=== PATIENT | male | born 1990 | race Caucasian/White ===

== ENCOUNTER 2023-11-29 10:26 | Emergency (ER) | payer OTHER, SELFPAY ==
[2023-11-29 10:29] VITALS: BP 112/60; PULSE 84; RESP 15; TEMP 36.7; O2SAT 97
[2023-11-29 10:34] VITALS: O2SAT 97
[2023-11-29 10:35] VITALS: BP 112/60; PULSE 59; PULSE 84; RESP 15; TEMP 36.7; O2SAT 97
[2023-11-29 10:40] VITALS: O2SAT 97
--- NOTE | 2023-11-29 10:47 | ED.GENADUL_ITS ---
Discharge Plan Disposition Patient Disposition: [facility] Condition: Stable Discharge Details Clinical Impression: Hernia, inguinal, right Primary Care Provider: Evelyn Suarez ED Provider: Abbie Castorena Discharge Instructions Instructions: Groin Hernia (DC) Additional Instructions: At this time you have opted not to be evaluated further for the right groin pain. Please return to the ER or be seen sooner for any worsening pain, nausea vomiting diarrhea, problems urinating, continued constipation, fever chills or worsening concerns. Please take Tylenol or Ibuprofen with food every 4-6 hours as needed for pain and swelling. Referrals: Evelyn Suarez [Primary Care Provider] - 3 days HPI General Mode of arrival: ambulatory . Date/Time Provider Initiated Documentation: 11/29/23 10:33 . Limitations to Documentation: no limitations . Information obtained by: police . HPI Narrative: 33-year-old male presents in custody with chief complaint of right lower groin pain. Which has gotten worse since approximately last night. He reports however that he has had this similar pain for the last 15 years and it is tolerable. There is a confusion prior to arrival at the group home per correctional officers report and patient reports that he does not want to be seen in the emergency department at this time. Last bowel movement was proximately 4 to 5 days ago which patient is not concerned about. He denies any problems urinating problems urination. He is requesting to be discharged without any further evaluation or treatment. He is alert and oriented x 4 does not appear to be under the influence of any substances. He denies any recent heavy lifting or injuries. General Stated Complaint: Abd Prob INDIGO: 3 Review of Systems All systems reviewed & are unremarkable except as noted in HPI and below Constitutional Constitutional: Denies chills and Denies fever(s) Gastrointestinal Gastrointestinal: Denies abdominal pain, Denies hematochezia, Denies change in bowel habits, Reports constipation (last BM 4 days ago), Denies diarrhea, Denies nausea and Denies vomiting Genitourinary Genitourinary: Reports as per HPI, Denies hematuria, Denies dysuria, Denies nocturia, Denies penile discharge, Denies scrotal swelling, Denies testicular mass, Denies testicular pain, Denies urinary hesitancy and Denies urinary urgency Exam Narrative Exam Narrative: Constitutional: Alert and oriented x3. Appears stated age. Normal body habitus. Speaking in full sentences Head: Normocephalic, no trauma. Abdomen: Nondistended, declined further evaluation. Course Vital Signs Vital signs: Vital Signs Temperature 36.7 C 11/29/23 10:29 Pulse 84 11/29/23 10:29 Respiratory Rate 15 11/29/23 10:29 Blood Pressure 112/60 11/29/23 10:29 Pulse Oximetry 97 11/29/23 10:29 Temperature 36.7 C 11/29/23 10:35 Temperature Source Tympanic 11/29/23 10:35 Pulse 84 11/29/23 10:35 Respiratory Rate 15 11/29/23 10:35 Respiratory Effort Normal 11/29/23 10:35 Blood Pressure 112/60 11/29/23 10:35 Blood Pressure Position Sitting 11/29/23 10:35 Pulse Oximetry 97 11/29/23 10:35 Oxygen Delivery Method Room Air 11/29/23 10:35 Oxygen Flow Rate 0 11/29/23 10:29 Medical Decision Making 33-year-old male presents in custody with chief complaint of right lower groin pain. Which has gotten worse since last night. He reports however that he has had this similar pain for the last 15 years and it is tolerable. There is a confusion prior to arrival at the group home and patient reports that he does not want to be seen in the emergency department at this time. Last bowel movement was proximately 4 to 5 days ago which patient is not concerned about. He denies any problems urinating problems urination. He is requesting to be discharged without any further evaluation or treatment. He is alert and oriented x 4 does not appear to be under the influence of any substances. Patient to be returned to correctional facility in the accompaniment of correction officers with strict return instructions. Quality:SDOH Health Related Social Needs: No Data to Display PFSH All Active Problems (Updated 11/29/23 @ 10:51 by Abbie Castorena NP) Hernia, inguinal, right (Acute) Social History Smoking risk assessment performed?: No
[2023-11-29 11:06] VITALS: BP 112/60; PULSE 59; RESP 15; TEMP 36.7; O2SAT 97
== END 2023-11-29 11:06 ==
PROVIDERS: Emergency Provider Registered Nurse Emergency; PCP Nurse Practitioner Family
DX: R10.31 Right lower quadrant pain (principal); K40.90 Unilateral inguinal hernia, without obstruction or gangrene, not specified as recurrent
CPT/HCPCS: 99281; 99282

== ENCOUNTER 2024-08-23 15:05 | Emergency (ER) | payer OTHER, SELFPAY ==
[2024-08-23 15:08] VITALS: BP 137/81; PULSE 79; RESP 16; TEMP 37.4; O2SAT 97
[2024-08-23 15:14] VITALS: BP 137/81; PULSE 79; RESP 16; TEMP 37.4; O2SAT 97
--- NOTE | 2024-08-23 15:16 | W.ED.GENAD ---
Discharge Plan Disposition Patient Disposition: Home Condition: Stable Discharge Details Clinical Impression: Facial cellulitis Primary Care Provider: Evelyn Suarez ED Provider: Masoud Wilde Home Meds and New Rx's Prescriptions: New ketorolac 10 mg tablet 10 mg PO QID 5 Days Qty: 19 0RF Rx Instructions: maximum total duration of 5 days from all oral, intranasal, or parenteral formulations clindamycin HCl 150 mg capsule 450 mg PO TID 14 Days Qty: 126 0RF Continued docusate sodium 100 mg capsule 100 mg PO BID sennosides [Laxative (sennosides)] 8.6 mg tablet 8.6 mg PO DAILY hydroxyzine HCl 50 mg tablet 50 mg PO DAILY acyclovir 400 mg tablet 400 mg PO DAILY prazosin 1 mg capsule 1 mg PO DAILY buprenorphine-naloxone [Suboxone] 8-2 mg film 3 film sublingual DAILY Patient Comments: PLACE THREE FILMS UNDER THE TONGUE EVERY DAY FOR 7 DAYS venlafaxine 37.5 mg tablet 37.5 mg PO DAILY Held ibuprofen [Advil] 200 mg tablet 800 mg PO ONCE Hold Instructions: Resume on 08/28/24. HOLD WHILE ON KETOROLAC Discharge Instructions Instructions: Stye, Clindamycin (Systemic), Ketorolac (Systemic), Cellulitis (Skin Infection), Adult ED Additional Instructions: You were seen in the emergency department for the cellulitis of your right upper lip and the early stye on your left upper eyelid, the stye just needs hot compresses and will likely drain a small amount of pus at some point and improved. The cellulitis to your upper lip is pretty significant, I have prescribed you clindamycin which covers most bacterial causes of cellulitis including MRSA due to penicillin and Bactrim allergies. Please take 1000 mg of Tylenol every 6 hours, correction in between Tylenol dosing please take the 10 mg oral ketorolac tablets for 5 days, once you run out of ketorolac tablets substitute 400 mg of ibuprofen for this dose. Take 450 mg of clindamycin 3 times per day, apply warm compresses to each area of infection with warm soapy or clean water each day. Please return to the emergency department for any severe vocal changes, increasing swelling despite treatment, difficulty managing secretions, neck stiffness and fever. The antibiotic should begin to turn the infection around by day 3. Referrals: Evelyn Suarez [Primary Care Provider] - Discharge Data Discharge Date/Time-TO BE ENTERED AT DEPARTURE: 08/23/24 15:46 HPI General Date/Time Provider Initiated Documentation: 08/23/24 15:13. HPI Narrative: 33 year-old male presents to ED today by PD/DOC with a chief complaint of R upper lip swelling with onset 2 weeks ago after a minor cut from shaving, now with worsening redness for the past 4 days. Quality described as painful to touch, swollen, and red, no radiation to honey colored crust, open sore, vocal changes, trismus, tongue swelling, dysphagia, neck soreness/stiffness, excessive drooling, endorses his tooth hurts behind in the setting of chronic diffuse dental decay, as well as a L upper eyelid minor redness. Severity is described as moderate to severe when touched. Palliating factors include was started on acyclovir 08/21. Provoking factors include nothing specific. Patient not anticoagulated. Related Data Home Medications ?Medication ?Instructions ?Recorded ?Confirmed acyclovir 400 mg tablet 400 mg PO DAILY 08/23/24 08/23/24 buprenorphine 8 mg-naloxone 2 mg 3 film sublingual DAILY 08/23/24 08/23/24 sublingual film (Suboxone) clindamycin HCl 150 mg capsule 450 mg (3 x 150 mg) PO TID 08/23/24 cellulitis 14 days #126 caps docusate sodium 100 mg capsule 100 mg PO BID 08/23/24 08/23/24 hydroxyzine HCl 50 mg tablet 50 mg PO DAILY 08/23/24 08/23/24 ibuprofen 200 mg tablet (Advil) 800 mg PO ONCE 08/23/24 08/23/24 ketorolac 10 mg tablet 10 mg PO QID 5 days #19 tabs 08/23/24 prazosin 1 mg capsule 1 mg PO DAILY 08/23/24 08/23/24 sennosides 8.6 mg tablet (Laxative 8.6 mg PO DAILY 08/23/24 08/23/24 (sennosides)) venlafaxine 37.5 mg tablet 37.5 mg PO DAILY 08/23/24 08/23/24 Previous Rx's ?Medication ?Instructions ?Recorded clindamycin HCl 150 mg capsule 450 mg (3 x 150 mg) PO TID 08/23/24 cellulitis 14 days #126 caps ketorolac 10 mg tablet 10 mg PO QID 5 days #19 tabs 08/23/24 Allergies Allergy/AdvReac Type Severity Reaction Status Date / Time Penicillins Allergy Severe Anaphylaxis Verified 08/23/24 15:13 codeine Allergy Intermediate Hives Verified 08/23/24 15:13 Sulfa (Sulfonamide AdvReac Intermediate Swelling/Ed Verified 08/23/24 15:13 Antibiotics) garima General Stated Complaint: Cellulitis INDIGO: 3 Review of Systems All systems reviewed & are unremarkable except as noted in HPI and below Exam Narrative Exam Narrative: GENERAL APPEARANCE: Well-nourished, non-toxic, awake and alert, atraumatic, no acute distress. SKIN: Warm, pink, dry, intact, without rashes/lesions/ulcerations. HEAD: Normocephalic, atraumatic, normal hair distribution for gender/age. EYES: Normal conjunctiva, no exudates on lids/lashes. ENT: Nares patent, no circumoral cyanosis, no facial swelling, diffuse dental decay without palpable gingival abscess, significant right upper lip swelling and erythema without tongue swelling, uvula midline, no trismus, managing secretions well, no cervical lymphadenopathy, minor redness to left upper eyelid consistent with early stye NECK: Supple, trachea midline, painless cervical ROM. LUNGS/CHEST: Non-labored respirations, normal A/P diameter, symmetrical expansion, no chest wall deformity HEART (CV/PV): No peripheral edema, no JVD. ABDOMEN: Soft, non-distended, no guarding. MSK: Normal ROM, no swelling/deformity to bilateral UEs or LEs, moving all extremities without weakness, no cyanosis, spine midline without tenderness, normal curvature. NEURO: Mental Status AAOx4 - alert to person, place, time, events No facial droop, no forehead involvement. Motor: No focal weakness - strength 5/5 in bilateral UEs and LEs, proximal and distal, symmetric. Sensory: sensation intact to light touch globally. Gait normal: patient ambulated without ataxia into ED room. PSYCH: euthymic, cooperative, pleasant, appropriate speech Course Vital Signs Vital signs: Vital Signs Temperature 37.4 C 08/23/24 15:08 Pulse 79 08/23/24 15:08 Respiratory Rate 16 08/23/24 15:08 Blood Pressure 137/81 08/23/24 15:08 Pulse Oximetry 97 08/23/24 15:08 Temperature 37.4 C 08/23/24 15:08 Temperature Source Tympanic 08/23/24 15:08 Pulse 79 08/23/24 15:08 Respiratory Rate 16 08/23/24 15:08 Blood Pressure 137/81 08/23/24 15:08 Pulse Oximetry 97 08/23/24 15:08 Oxygen Delivery Method Room Air 08/23/24 15:08 Oxygen Flow Rate 0 08/23/24 15:08 Medical Decision Making This dictation utilizes [id number] dictation software and may contain unedited grammatical errors. 33 year-old male presents to ED today by PD/DOC with a chief complaint of R upper lip swelling with onset 2 weeks ago after a minor cut from shaving, now with worsening redness for the past 4 days. Quality described as painful to touch, swollen, and red, no radiation to honey colored crust, open sore, vocal changes, trismus, tongue swelling, dysphagia, neck soreness/stiffness, excessive drooling, endorses his tooth hurts behind in the setting of chronic diffuse dental decay, as well as a L upper eyelid minor redness. Severity is described as moderate to severe when touched. Palliating factors include was started on acyclovir 08/21. Provoking factors include nothing specific. Patients' medical history: Oral HSV. Family and social history: Incarcerated. Pertinent exam findings / vital signs include diffuse dental decay without palpable gingival abscess, significant right upper lip swelling and erythema without tongue swelling, uvula midline, no trismus, managing secretions well, no cervical lymphadenopathy, minor redness to left upper eyelid consistent with early stye. Differential / pathologies of concern include cellulitis, dental abcess, impetigo, stye. Diagnostic studies of: -none. Interventions of: -1g PO Tylenol, 30mg IM Toradol, 450mg PO clindamycin with continuation by Rx PO, and 5 days of ketorolac ED Course/Assessment/Plan: 33-year-old incarcerated male presents with right upper lip swelling as well as a left upper eyelid stye, this has been present for the past 4 days after he nicked himself shaving 2 weeks ago, he is nontoxic and afebrile, has no palpable gingival abscess, no signs of deep space infection, plan to treat with clindamycin due to his penicillin and Bactrim allergy, counseled on therapeutic dosing of Tylenol and 5 days of Toradol and performing warm compresses, paper scripts provided to corrections staff. Findings not consistent with deep space infection, drainable abscess, airway compromise, HSV-but will have him continue acyclovir. Disposition of facial cellulitis. Patient verbalized understanding of the plan and return to ED criteria and engaged in shared decision making. Medical Records Medical records reviewed: Yes I reviewed the patient's medical records. Quality:SDOH Health Related Social Needs: No Data to Display PFSH All Active Problems (Updated 08/23/24 @ 15:29 by CLARI Wall) Facial cellulitis (Acute) Social History Smoking/Tobacco Use Status: Former Tobacco Use Smoking risk assessment performed?: Yes Alcohol Intake: former Substance use type: does not use Housing: other
[2024-08-23] MEDS: Acetaminophen 500 MG TAB 1000 MG PO (15:38)
[2024-08-23] MEDS: Clindamycin 150 MG CAP 450 MG PO (15:38)
[2024-08-23] MEDS: Ketorolac 30 MG/ML VIAL IM (15:38)
== END 2024-08-23 15:46 | disposition home or self-care (01) ==
LOC: ER 15:35
PROVIDERS: Emergency Provider Physician Assistant; PCP Nurse Practitioner Family
DX: K13.0 Diseases of lips (principal); H00.014 Hordeolum externum left upper eyelid; Z87.891 Personal history of nicotine dependence
CPT/HCPCS: 99283; J1885

== ENCOUNTER 2024-08-26 10:13 | Inpatient (IN) | payer MEDICAID, SELFPAY ==
[2024-08-26 10:20] VITALS: BP 116/74; PULSE 104; RESP 14; TEMP 36.7; O2SAT 97
--- NOTE | 2024-08-26 10:29 | W.ED.GENAD ---
Discharge Plan Disposition Patient Disposition: Admit to [facility] Condition: Stable Discharge Details Clinical Impression: Facial cellulitis Admit Date/Time: 08/26/24 14:38 Admit Provider: Tung Muro Attending Provider: Tung Muro Primary Care Provider: Evelyn Suarez ED Provider: Masoud Wilde Discharge Data Discharge Date/Time-TO BE ENTERED AT DEPARTURE: 08/26/24 15:33 HPI General Date/Time Provider Initiated Documentation: 08/26/24 10:26. HPI Narrative: 33 year-old male presents to ED today by DOC custody with a chief complaint of worsening facial cellulitis, failed multiple outpatient antibiotics at [facility], placed on clindamycin by myself this past Monday at an ER visit- with worsening of rizo erythema, redness, pain, and drainage from R upper lip cellulitis. Quality described as throbbing, painful, with painful poor dentition chronically as well, no radiation to dysphagia, vocal changes, neck stiffness, shortness of breath, high fever, nausea, excessive drooling. Severity is described as severe. Palliating factors include multiple outpatient PO antibiotics without improvement. Provoking factors include nothing specific. Events leading up to the incident/Associated Symptoms: States this all began from a minor pimple or cut from shaving a couple weeks ago now. The DOC staff did trial acyclovir as well. Patient not anticoagulated. Related Data Home Medications ?Medication ?Instructions ?Recorded ?Confirmed acyclovir 400 mg tablet 400 mg PO TID 08/23/24 08/26/24 buprenorphine 8 mg-naloxone 2 mg 3 film sublingual DAILY 08/23/24 08/26/24 sublingual film (Suboxone) clindamycin HCl 150 mg capsule 450 mg (3 x 150 mg) PO TID 08/23/24 08/26/24 cellulitis 14 days #126 caps docusate sodium 100 mg capsule 100 mg PO BID 08/23/24 08/26/24 hydroxyzine HCl 50 mg tablet 50 mg PO DAILY 08/23/24 08/26/24 ibuprofen 200 mg tablet (Advil) 800 mg PO TID 08/23/24 08/26/24 prazosin 1 mg capsule 1 mg PO HS 08/23/24 08/26/24 sennosides 8.6 mg tablet (Laxative 8.6 mg PO DAILY 08/23/24 08/26/24 (sennosides)) venlafaxine 37.5 mg tablet 37.5 mg PO DAILY 08/23/24 08/26/24 acetaminophen 500 mg capsule 1,000 mg PO TID 08/26/24 08/26/24 erythromycin 5 mg/gram (0.5 %) eye 1 applic ophthalmic (eye) TID 08/26/24 08/26/24 ointment Previous Rx's ?Medication ?Instructions ?Recorded clindamycin HCl 150 mg capsule 450 mg (3 x 150 mg) PO TID 08/23/24 cellulitis 14 days #126 caps Allergies Allergy/AdvReac Type Severity Reaction Status Date / Time Penicillins Allergy Severe Anaphylaxis Verified 08/26/24 10:23 codeine Allergy Intermediate Hives Verified 08/26/24 10:23 Sulfa (Sulfonamide AdvReac Intermediate Swelling/Ed Verified 08/26/24 10:23 Antibiotics) garima General Stated Complaint: Recheck INDIGO: 4 Review of Systems All systems reviewed & are unremarkable except as noted in HPI and below Exam Narrative Exam Narrative: GENERAL APPEARANCE: Well-nourished, non-toxic, awake and alert, atraumatic, no acute distress. SKIN: Warm, pink, dry, intact, without rashes/lesions/ulcerations. HEAD: Normocephalic, atraumatic, normal hair distribution for gender/age. EYES: Normal conjunctiva, no exudates on lids/lashes, no pain with EOM movement, mild erythematous papular swelling to the left upper eyelid consistent with stye ENT: Nares patent, no circumoral cyanosis, severe erythema and swelling to the right upper lip with purulent drainage, mild maxillary tenderness NECK: Supple, trachea midline, painless cervical ROM. LUNGS/CHEST: Lungs CTA bilaterally-no rhonchi/rales/wheezes diffusely, non-labored respirations, normal A/P diameter, symmetrical expansion, no chest wall deformity HEART (CV/PV): Regular rate and rhythm without murmur, no peripheral edema, no JVD. ABDOMEN: Soft, non-distended, no guarding. MSK: Normal ROM, no swelling/deformity to bilateral UEs or LEs, moving all extremities without weakness, no cyanosis, spine midline without tenderness, normal curvature. NEURO: Mental Status AAOx4 - alert to person, place, time, events No facial droop, no forehead involvement. Motor: No focal weakness - strength 5/5 in bilateral UEs and LEs, proximal and distal, symmetric. Sensory: sensation intact to light touch globally. Gait normal: patient ambulated without ataxia into ED room. PSYCH: euthymic, cooperative, pleasant, appropriate speech Course Vital Signs Vital signs: Vital Signs Temperature 36.7 C 08/26/24 10:20 Pulse 104 H 08/26/24 10:20 Respiratory Rate 14 08/26/24 10:20 Blood Pressure 116/74 08/26/24 10:20 Pulse Oximetry 97 08/26/24 10:20 Temperature 36.7 C 08/26/24 10:20 Temperature Source Oral 08/26/24 10:20 Pulse 104 H 08/26/24 10:20 Respiratory Rate 14 08/26/24 10:20 Blood Pressure 116/74 08/26/24 10:20 Blood Pressure Position Sitting 08/26/24 10:20 Pulse Oximetry 97 08/26/24 10:20 Oxygen Delivery Method Room Air 08/26/24 10:20 Oxygen Flow Rate 0 08/26/24 10:20 Medical Decision Making This dictation utilizes [id number] dictation software and may contain unedited grammatical errors. 33 year-old male presents to ED today by DOC custody with a chief complaint of worsening facial cellulitis, failed multiple outpatient antibiotics at [facility], placed on clindamycin by myself this past Monday at an ER visit- with worsening of rizo erythema, redness, pain, and drainage from R upper lip cellulitis. Quality described as throbbing, painful, with painful poor dentition chronically as well, no radiation to dysphagia, vocal changes, neck stiffness, shortness of breath, high fever, nausea, excessive drooling. Severity is described as severe. Palliating factors include multiple outpatient PO antibiotics without improvement. Provoking factors include nothing specific. Events leading up to the incident/Associated Symptoms: States this all began from a minor pimple or cut from shaving a couple weeks ago now. The DOC staff did trial acyclovir as well. Patients' medical history: Noncontributory. Family and social history: Incarcerated. Pertinent exam findings / vital signs include large right upper lobe facial cellulitis with some scant purulent drainage, also has a stye to the left eye that looks worse than this past Kris otherwise nontoxic and afebrile, benign cardiopulmonary. Differential / pathologies of concern include cellulitis, abscess, stye. Diagnostic studies of: - CBC, CMP, lactate, wound culture, blood cultures, CT facial with contrast. - CBC shows no leukocytosis, no left shift - Lactate negative - CMP without actionable abnormality - Wound culture pending, blood cultures pending - CT facial shows no significant large abscess, diffuse poor dentition and cellulitic changes to the right upper lip Interventions of: -IV vancomycin, consult hospitalist for admission- accepted @ 1335. ED Course/Assessment/Plan: 33-year-old incarcerated male presents with worsening right upper lip cellulitis he was seen this past Monday and placed on clindamycin after failing multiple outpatient antibiotics, he is not improving and is showing some worsening swelling and pain in now having purulent drainage from the area, plan to admit the patient for failing outpatient therapy for a severe facial cellulitis, he has a mild stye on the left eye likely just needs hot compresses has no evidence of any periorbital cellulitis on exam or imaging. Dr. Muro addmited @ 1335. Disposition of Facial Cellulitis. Patient verbalized understanding of the plan and return to ED criteria and engaged in shared decision making. Medical Records Medical records reviewed: Yes I reviewed the patient's medical records. Imaging Data Radiologic Study: Attestation: I personally reviewed and interpreted this imaging study as follows: Imaging: CT Scan Radiologist's impression: EXAM: CT FACIAL W CLINICAL HISTORY: upper R lip infection, failing outpatient. TECHNIQUE: Imaging Protocol: Axial computed tomography images with coronal and sagittal reformatted images were created and reviewed. IV contrast: 100 mL Optiray 350 COMPARISON: No exams were available for comparison FINDINGS: MAXILLOFACIAL CT SCAN: OSSEOUS: There is no evidence of facial fractures nor fluid the visualized paranasal sinuses. There is no evidence of orbital blowout fracture. VIV DENTAL: Mandible is intact but there are prominent periapical lucencies around numerous upper teeth in both sides of the maxilla. There is some overlying cortical dehiscence. There is prominent soft tissue swelling anteriorly the lips, more prominent right of center. This is most probably infectious. There is no gas in the soft tissues. No radiopaque foreign body. LYMPH NODES: There are enhancing slightly enlarged reactive lymph nodes in both submandibular regions. OROPHARYNX: No significant focal findings. Uvula is midline. No tonsillar abscess is evident. NASOPHARYNX: Unremarkable HYPOPHARYNX: Unremarkable. VOCAL CORDS: Unremarkable SALIVARY GLANDS: Parotid and submandibular glands appear unremarkable. IMPRESSION: Prominent swelling of the lips, right more than left, and predominately the lower lip.. Most probably infectious. Cannot exclude abscess of the right lower lip. No gas in the soft tissues. No radiopaque foreign body. Poor dentition. There are multiple prominent periapical lucencies around numerous upper teeth on both sides of the maxilla. Called by myself to ER provider 08/26/2024 at 1:00 2 p.m. Lab Data Lab results reviewed: Yes I reviewed the patient's lab results. Labs: 08/26/24 10:48 Lip - Right Upper Wound Culture - Pending 08/26/24 10:48 Lip - Right Upper Gram Stain - Final 08/26/24 11:25 Blood Blood Culture - Pending 08/26/24 11:04 Blood Blood Culture - Pending Laboratory Tests Range/Units 08/26/24 10:48 WBC (4.4-10.8) 10^3/uL 9.23 RBC (4.36-5.78) 10^6/uL 4.33 L Hgb (13.5-17.5) g/dL 12.6 L Hct (40.0-50.0) % 37.2 L MCV (80-95) fL 86 MCH (27.0-33.0) pg 29.1 MCHC (32.0-36.0) % 33.9 RDW (11.8-14.1) % 12.5 Plt Count (130-400) 10^3/uL 232 MPV (8.0-11.0) fL 9.0 Immature Gran % % 0.2 Neutrophils % % 64.2 Lymphocytes % % 24.2 Monocytes % % 8.5 Eosinophils % % 2.4 Basophils % % 0.5 Nucleated RBC % (0.0-0.3) % 0.0 Absolute Neutrophils (1.2-6.7) 10^3/uL 5.93 Absolute Lymphocytes (1.2-3.4) 10^3/uL 2.23 Absolute Monocytes (0.1-0.8) 10^3/uL 0.78 Absolute Eosinophils (0.0-0.7) 10^3/uL 0.22 Absolute Basophils (0.0-0.2) 10^3/uL 0.05 VBG Lactate (<or=2.0) mmol/L 0.7 Sodium (136-145) mmol/L 140 Potassium (3.5-5.1) mmol/L 3.9 Chloride (98-107) mmol/L 103 Carbon Dioxide (21.0-32.0) mmol/L 29.8 Anion Gap (3-11) mmol/L 7.2 BUN (7-18) mg/dL 15 Creatinine (0.70-1.30) mg/dL 0.8 Est GFR (CKD-EPI 2020) (mL/min/1.73m2) 118.36 Glucose (74-106) mg/dL 98 Calcium (8.5-10.1) mg/dL 9.5 Total Bilirubin (0.2-1.0) mg/dL 0.4 AST (15-37) U/L 22 ALT (16-63) U/L 29 Alkaline Phosphatase (46-116) U/L 88 Total Protein (6.4-8.2) g/dL 7.7 Albumin (3.4-5.0) g/dL 3.5 Quality:SDOH Health Related Social Needs: Health related social needs feeling lonely/isolated (Z60.8) Health related social needs details Pt is currently incarcerated. PFSH All Active Problems (Updated 08/26/24 @ 13:40 by CLARI Wall) Facial cellulitis (Acute) Social History Smoking/Tobacco Use Status: Former Tobacco Use Smoking risk assessment performed?: Yes Alcohol Intake: former Substance use type: does not use Housing: other Do you feel safe at home: Yes Do you feel safe in your relationship?: Yes
--- NOTE | 2024-08-26 10:30 | DI.CT_ITS ---
Exam(s) CT FACIAL W EXAM: CT FACIAL W CLINICAL HISTORY: upper R lip infection, failing outpatient. TECHNIQUE: Imaging Protocol: Axial computed tomography images with coronal and sagittal reformatted images were created and reviewed. IV contrast: 100 mL Optiray 350 COMPARISON: No exams were available for comparison FINDINGS: MAXILLOFACIAL CT SCAN: OSSEOUS: There is no evidence of facial fractures nor fluid the visualized paranasal sinuses. There is no letitia dence of orbital blowout fracture. VIV DENTAL: Mandible is intact but there are prominent periapical lucencies around numerous upper megan th in both sides of the maxilla. There is some overlying cortical dehiscence. There is prominent soft tissue swelling anteriorly the lips, more prominent right of center. This is most probably infectious. There is no gas in the soft tissues. No radiopaque foreign body. LYMPH NODES: There are enhancing slightly enlarged reactive lymph nodes in both submandibular regions . OROPHARYNX: No significant focal findings. Uvula is midline. No tonsillar abscess is evident. NASOPHARYNX: Unremarkable HYPOPHARYNX: Unremarkable. VOCAL CORDS: Unremarkable SALIVARY GLANDS: Parotid and submandibular glands appear unremarkable. IMPRESSION: Prominent swelling of the lips, right more than left, and predominately the lower lip.. Most probably infectious. Cannot exclude abscess of the right lower lip. No gas in the soft tissues. No radiopaqu e foreign body. Poor dentition. There are multiple prominent periapical lucencies around numerous upper teeth on bot h sides of the maxilla. Called by myself to ER provider 08/26/2024 at 1:00 2 p.m. RADIATION DOSE DELIVERED: 430.62mGy.cm Total DLP DATA REPOSITORY: All CT scans at this facility are submitted to the National Radiology Data Registry (NRDR) Dose Index Registry (DIR) with the [employer] (ACR). RADIATION OPTIMIZATION: All CT scans at this facility use at least one of these dose optimization te chniques: automated exposure control; mA and/or kV adjustment per patient size (includes targeted exa ms where dose is matched to clinical indication); or iterative reconstruction.
[2024-08-26 11:15] LABS: Lactate 0.7 mmol/L (<or=2.0)
[2024-08-26 11:16] LABS: Abs Immature Grans 0.02 10^3/uL (0.0-0.06); Absolute Basophil Count 0.05 10^3/uL (0.0-0.2); Absolute Eosinophil Count 0.22 10^3/uL (0.0-0.7); Absolute Lymphocyte Count 2.23 10^3/uL (1.2-3.4); Absolute Monocyte Count 0.78 10^3/uL (0.1-0.8); Absolute Neutrophil Count 5.93 10^3/uL (1.2-6.7); Basophils % 0.5 %; Eosinophils % 2.4 %; HCT 37.2 % (40.0-50.0); HGB 12.6 g/dL (13.5-17.5); Immature Grans % 0.2 %; Lymphocytes % 24.2 %; MCH 29.1 pg (27.0-33.0); MCHC 33.9 % (32.0-36.0); MCV 86 fL (80-95); Monocytes % 8.5 %; Neutrophils % 64.2 %; Platelet Count 232 10^3/uL (130-400); RBC 4.33 10^6/uL (4.36-5.78); RDW 12.5 % (11.8-14.1); RDW-SD 39.2 fL; WBC 9.23 10^3/uL (4.4-10.8)
[2024-08-26] MEDS: VANCOMYCIN/WATER (PEG) 2 GM/400 ML BAG IVPB (11:30)
[2024-08-26 11:40] LABS: ALT 29 U/L (16-63); AST 22 U/L (15-37); Albumin 3.5 g/dL (3.4-5.0); Alkaline Phosphatase 88 U/L (46-116); Anion Gap 7.2 mmol/L (3-11); BUN 15 mg/dL (7-18); Bilirubin, Total 0.4 mg/dL (0.2-1.0); CO2 29.8 mmol/L (21.0-32.0); CREATININE 0.8 mg/dL (0.70-1.30); Calcium 9.5 mg/dL (8.5-10.1); Chloride 103 mmol/L (98-107); Estimated GFR 118.36 (mL/min/1.73m2); Glucose 98 mg/dL (74-106); Potassium 3.9 mmol/L (3.5-5.1); Sodium 140 mmol/L (136-145); Total Protein 7.7 g/dL (6.4-8.2)
[2024-08-26] MEDS: Omnipaque 350 MG/ML 100 ML BTL IJ (12:32)
[2024-08-26] MEDS: Normal Saline - Diluent 50 ML VIAL IJ (12:38)
[2024-08-26 15:32] VITALS: BP 116/74; PULSE 104; RESP 14; TEMP 36.7; O2SAT 97
--- NOTE | 2024-08-26 15:35 | W.PC.ACHO ---
Registration Status: Primary Language: Preferred Language: ED Information & Data Chief Complaint Recheck 08/26/24 10:30 Triage Note patient here for recheck of 08/26/24 10:20 lip infection that is getting worse. Was here a few days ago for same. Most Recent Vital Signs Temperature 36.7 C 08/26/24 10:20 Temperature Source Oral 08/26/24 10:20 Pulse 104 H 08/26/24 10:20 Respiratory Rate 14 08/26/24 10:20 Blood Pressure 116/74 08/26/24 10:20 Blood Pressure Position Sitting 08/26/24 10:20 Pulse Oximetry 97 08/26/24 10:20 Oxygen Delivery Method Room Air 08/26/24 10:20 Oxygen Flow Rate 0 08/26/24 10:20 Allergies Penicillins Allergy (Severe, Verified 08/26/24 10:23) Anaphylaxis codeine Allergy (Intermediate, Verified 08/26/24 10:23) Hives Sulfa (Sulfonamide Antibiotics) Adverse Reaction (Intermediate, Verified 08/26/24 10:23) Swelling/Edema Precautions Isolation Standard precaution 08/26/24 10:21 Active Medications Generic Name Dose Route Start Last Admin Trade Name Freq PRN Reason Stop Dose Admin Iohexol 100 ml 08/26/24 12:45 08/26/24 12:32 Omnipaque 350 Mg/Ml 100 Ml Btl IJ 09/25/24 23:59 100 ml DIRECTED DENNIS Administration Sodium Chloride 50 ml 08/26/24 12:45 08/26/24 12:38 Normal Saline - Diluent 50 Ml Vial IJ 50 ml .FOR DI USE DENNIS Administration IV IV Catheter Type [Right Saline Lock Antecubital] IV Catheter Gauge [Right 20 Antecubital] Diagnostics 08/26/24 Range/Units 10:48 WBC 9.23 (4.4-10.8) 10^3/uL RBC 4.33 L (4.36-5.78) 10^6/uL Hgb 12.6 L (13.5-17.5) g/dL Hct 37.2 L (40.0-50.0) % MCV 86 (80-95) fL MCH 29.1 (27.0-33.0) pg MCHC 33.9 (32.0-36.0) % RDW 12.5 (11.8-14.1) % Plt Count 232 (130-400) 10^3/uL MPV 9.0 (8.0-11.0) fL Immature Gran % 0.2 % Neutrophils % 64.2 % Lymphocytes % 24.2 % Monocytes % 8.5 % Eosinophils % 2.4 % Basophils % 0.5 % Nucleated RBC % 0.0 (0.0-0.3) % Absolute Neutrophils 5.93 (1.2-6.7) 10^3/uL Absolute Lymphocytes 2.23 (1.2-3.4) 10^3/uL Absolute Monocytes 0.78 (0.1-0.8) 10^3/uL Absolute Eosinophils 0.22 (0.0-0.7) 10^3/uL Absolute Basophils 0.05 (0.0-0.2) 10^3/uL VBG Lactate 0.7 (<or=2.0) mmol/L Sodium 140 (136-145) mmol/L Potassium 3.9 (3.5-5.1) mmol/L Chloride 103 (98-107) mmol/L Carbon Dioxide 29.8 (21.0-32.0) mmol/L Anion Gap 7.2 (3-11) mmol/L BUN 15 (7-18) mg/dL Creatinine 0.8 (0.70-1.30) mg/dL Est GFR (CKD-EPI 2020) 118.36 (mL/min/1.73m2) Glucose 98 (74-106) mg/dL Calcium 9.5 (8.5-10.1) mg/dL Total Bilirubin 0.4 (0.2-1.0) mg/dL AST 22 (15-37) U/L ALT 29 (16-63) U/L Alkaline Phosphatase 88 (46-116) U/L Total Protein 7.7 (6.4-8.2) g/dL Albumin 3.5 (3.4-5.0) g/dL 08/26/24 10:48 Wound Culture - Pending Lip - Right Upper Gram Stain - Final 08/26/24 11:25 Blood Culture - Pending Blood 08/26/24 11:04 Blood Culture - Pending Blood Intake and Output - 24 Hour Total 08/26/24 10:13 thru 08/26/24 10:20 Weight 91.626 kg Falls Risk Assessment History of Falls No History 08/26/24 10:21 Contributing Factors No Factors 08/26/24 10:21 Ambulatory Aids Independent 08/26/24 10:21 Tubes/Lines None 08/26/24 10:21 Gait Evaluation No gait disturbance 08/26/24 10:21 Cognition No cognitive impairment 08/26/24 10:21 Fall Total Score 0 08/26/24 10:21 Level of Risk Standard/Low Risk 08/26/24 10:21 v v v v v v v v v Sending and/or Receiving Nurses: Please use comment section below to note any information pertinent to the patient hand-off not included above. Information / Comments: Initial page at 1447, report called at 1524. 18 G R AC. Significant right upper lip and eye swelling. Lungs clear, no other skin issues noted, and no swallowing or breathing issues. Pt is incarcerated and has 2 officers with him. Report received from: Man data analysis intern in ED.
[2024-08-26 15:40] VITALS: BP 132/80; PULSE 77; RESP 16; TEMP 36.4; O2SAT 98
[2024-08-26] MEDS: Acetaminophen 325 MG TAB PO (16:41)
--- NOTE | 2024-08-26 18:02 | HPE_ITS ---
Date of service: 08/26/24 Time of Service: 16:00 Assessment and Plan Assessment and plan (1) Facial cellulitis: Status: Acute Assessment and plan: Facial Cellulitis * Admit for inpatient management due to outpatient treatment failure * Antibiotics: * Vancomycin IV ? MRSA coverage pending culture results * Continue Clindamycin IV ? good anaerobic and MRSA coverage * Monitor clinical response to IV antibiotics * Await wound and blood cultures * Consider dental evaluation if symptoms persist or worsen due to underlying poor dentition 2. Pain Management * Ketorolac 10 mg PO QID x 5 days for acute pain control * Acetaminophen 1000 mg PO q6h alternating with ketorolac * Warm compresses to right upper lip and left upper eyelid twice daily * Monitor for abscess formation or extension of infection * Continue current medications including Suboxone, venlafaxine, etc. * Hold ibuprofen until ketorolac course is completed History of Present Illness History of Present Illness Chief Complaint: Swelling lower right face/lip N arrative: * Initial Presentation (08/23/24): * Right upper lip swelling, pain, and redness from shaving cut. * Minor stye on left upper eyelid. * Treated with oral clindamycin and ketorolac; discharged home. * Return Visit (08/26/24): * Worsening symptoms despite clindamycin: increased erythema, purulent drainage, and pain. * No systemic signs (afebrile, no leukocytosis). * Imaging: CT showed diffuse cellulitic changes but no abscess. * Labs: Normal CBC, CMP, lactate. * Intervention: IV vancomycin * Disposition: Admitted due to failure of outpatient treatment. Diagnostics * Labs: Normal (CBC, CMP, lactate) * Cultures: Wound and blood cultures pending * Imaging: CT facial without abscess but shows cellulitis and poor dentition Medications Discharge on 08/23/2024 * Clindamycin 450 mg TID x 14 days (covers MRSA) * Ketorolac 10 mg QID x 5 days (then switch to ibuprofen) * Continue existing meds: Suboxone, venlafaxine, hydroxyzine, acyclovir, prazosin, etc. * Discharge Instructions * Warm compresses to lip and eyelid daily * Return for: * Worsening swelling * Vocal changes, fever, difficulty swallowing, neck stiffness * Clindamycin expected to show effect by Day 3 * Avoid NSAID overlap: Hold ibuprofen until ketorolac completed * Patient is incarcerated * Poor dentition possibly contributing to infection * No evidence of orbital or deeper space infection Patient is admitted to the medical floor for further IV antibiotics. Patient is in agreement with plan of care. Patient is a full code. Review of Systems All systems reviewed & are unremarkable except as noted in HPI and below PFSH All Active Problems (Updated 08/26/24 @ 13:40 by CLARI Wall) Facial cellulitis (Acute) Social History Smoking/Tobacco Use Status: Former Tobacco Use Smoking risk assessment performed?: Yes Alcohol Intake: former Substance use type: does not use Housing: other Do you feel safe at home: Yes Do you feel safe in your relationship?: Yes Meds Allergies and Home Medications Allergies Allergy/AdvReac Type Severity Reaction Status Date / Time Penicillins Allergy Severe Anaphylaxis Verified 08/26/24 10:23 codeine Allergy Intermediate Hives Verified 08/26/24 10:23 Sulfa (Sulfonamide AdvReac Intermediate Swelling/Ed Verified 08/26/24 10:23 Antibiotics) garima Home Medications ?Medication ?Instructions ?Recorded ?Confirmed ?Type acyclovir 400 mg tablet 400 mg PO TID 08/23/24 08/26/24 History buprenorphine 8 mg-naloxone 2 mg 3 film sublingual DAILY 08/23/24 08/26/24 History sublingual film (Suboxone) clindamycin HCl 150 mg capsule 450 mg (3 x 150 mg) PO TID 08/23/24 08/26/24 Rx cellulitis 14 days #126 caps docusate sodium 100 mg capsule 100 mg PO BID 08/23/24 08/26/24 History hydroxyzine HCl 50 mg tablet 50 mg PO DAILY 08/23/24 08/26/24 History ibuprofen 200 mg tablet (Advil) 800 mg PO TID 08/23/24 08/26/24 History prazosin 1 mg capsule 1 mg PO HS 08/23/24 08/26/24 History sennosides 8.6 mg tablet (Laxative 8.6 mg PO DAILY 08/23/24 08/26/24 History (sennosides)) venlafaxine 37.5 mg tablet 37.5 mg PO DAILY 08/23/24 08/26/24 History acetaminophen 500 mg capsule 1,000 mg PO TID 08/26/24 08/26/24 History erythromycin 5 mg/gram (0.5 %) eye 1 applic ophthalmic (eye) TID 08/26/24 08/26/24 History ointment Exam Narrative Exam Narrative: GENERAL APPEARANCE: Well-nourished, non-toxic, awake and alert, atraumatic, no acute distress. SKIN: Warm, pink, dry, intact, without rashes/lesions/ulcerations. HEAD: Normocephalic, atraumatic, normal hair distribution for gender/age. EYES: Normal conjunctiva, no exudates on lids/lashes, no pain with EOM movement, mild erythematous papular swelling to the left upper eyelid consistent with stye ENT: Nares patent, no circumoral cyanosis, severe erythema and swelling to the right upper lip with purulent drainage, mild maxillary tenderness NECK: Supple, trachea midline, painless cervical ROM. LUNGS/CHEST: Lungs CTA bilaterally-no rhonchi/rales/wheezes diffusely, non- labored respirations, normal A/P diameter, symmetrical expansion, no chest wall deformity HEART (CV/PV): Regular rate and rhythm without murmur, no peripheral edema, no JVD. ABDOMEN: Soft, non-distended, no guarding. MSK: Normal ROM, no swelling/deformity to bilateral UEs or LEs, moving all extremities without weakness, no cyanosis, spine midline without tenderness, normal curvature. NEURO: Mental Status AAOx4 - alert to person, place, time, events No facial droop, no forehead involvement. Motor: No focal weakness - strength 5/5 in bilateral UEs and LEs, proximal and distal, symmetric. Sensory: sensation intact to light touch globally. Gait normal: patient ambulated without ataxia into ED room. PSYCH: euthymic, cooperative, pleasant, appropriate speech Results Labs 08/26/24 10:48 08/26/24 10:48 Labs: Laboratory Results - last 24 hr 08/26/24 10:48 WBC 9.23 RBC 4.33 L Hgb 12.6 L Hct 37.2 L MCV 86 MCH 29.1 MCHC 33.9 RDW 12.5 Plt Count 232 MPV 9.0 Immature Gran % 0.2 Neutrophils % 64.2 Lymphocytes % 24.2 Monocytes % 8.5 Eosinophils % 2.4 Basophils % 0.5 Nucleated RBC % 0.0 Absolute Neutrophils 5.93 Absolute Lymphocytes 2.23 Absolute Monocytes 0.78 Absolute Eosinophils 0.22 Absolute Basophils 0.05 VBG Lactate 0.7 Sodium 140 Potassium 3.9 Chloride 103 Carbon Dioxide 29.8 Anion Gap 7.2 BUN 15 Creatinine 0.8 Est GFR (CKD-EPI 2020) 118.36 Glucose 98 Calcium 9.5 Total Bilirubin 0.4 AST 22 ALT 29 Alkaline Phosphatase 88 Total Protein 7.7 Albumin 3.5 Last Vital Signs Temp 36.4 C L 08/26/24 15:40 Pulse 77 08/26/24 15:40 Resp 16 08/26/24 15:40 BP 132/80 08/26/24 15:40 Pulse Ox 98 08/26/24 15:40 Time Spent Time spent with Patient: 40-54 minutes Time was spent: preparing to see the patient(eg.review tests), obtaining and/or reviewing separately otained hiistory, ordering medications,tests, procedures, referring, communicating with other health insurance healthcare representative, indepentently interpreting results, counseling the patient and care coordination
[2024-08-26] MEDS: Ketorolac 30 MG/ML VIAL IVP (18:31)
[2024-08-26] MEDS: CLINDAMYCIN 900 MG/50 ML BAG 50 MG IVPB (18:31)
[2024-08-26 19:22] VITALS: BP 120/67; PULSE 63; RESP 20; TEMP 37; O2SAT 98
[2024-08-26] MEDS: Docusate Sodium 100 MG CAP PO (19:48)
[2024-08-26] MEDS: Acyclovir 400 MG TAB PO (19:48)
[2024-08-26] MEDS: VANCOMYCIN 1,500 MG in Normal Saline 250 ML 166.6666 MG IVPB (21:50)
[2024-08-26 23:16] VITALS: BP 122/70; PULSE 60; RESP 22; TEMP 37.4; O2SAT 99
[2024-08-27] MEDS: CLINDAMYCIN 900 MG/50 ML BAG 50 MG IVPB ×2 (02:00→10:14)
[2024-08-27 06:50] LABS: Abs Immature Grans 0.02 10^3/uL (0.0-0.06); Absolute Basophil Count 0.03 10^3/uL (0.0-0.2); Absolute Eosinophil Count 0.29 10^3/uL (0.0-0.7); Absolute Lymphocyte Count 1.35 10^3/uL (1.2-3.4); Absolute Monocyte Count 0.43 10^3/uL (0.1-0.8); Absolute Neutrophil Count 3.09 10^3/uL (1.2-6.7); Basophils % 0.6 %; Eosinophils % 5.6 %; HCT 35.7 % (40.0-50.0); HGB 12.5 g/dL (13.5-17.5); Immature Grans % 0.4 %; Lymphocytes % 25.9 %; MCH 29.3 pg (27.0-33.0); MCV 84 fL (80-95); Monocytes % 8.3 %; Neutrophils % 59.2 %; RBC 4.27 10^6/uL (4.36-5.78); RDW 12.6 % (11.8-14.1); RDW-SD 38.1 fL; WBC 5.21 10^3/uL (4.4-10.8)
[2024-08-27 07:18] LABS: Anion Gap 6.6 mmol/L (3-11); BUN 13 mg/dL (7-18); CO2 28.4 mmol/L (21.0-32.0); CREATININE 0.7 mg/dL (0.70-1.30); Calcium 9.4 mg/dL (8.5-10.1); Chloride 104 mmol/L (98-107); Estimated GFR 123.23 (mL/min/1.73m2); Glucose 96 mg/dL (74-106); MPV 9.1 fL (8.0-11.0); Potassium 3.8 mmol/L (3.5-5.1); Sodium 139 mmol/L (136-145); Vancomycin, Random 18.3 ug/mL
[2024-08-27 07:40] LABS: C-Reactive Protein 3.31 mg/dL (<or=0.5)
[2024-08-27 08:06] VITALS: BP 115/77; PULSE 59; RESP 14; TEMP 36.9; O2SAT 95
[2024-08-27] MEDS: Senna TAB 1 TAB PO (08:32)
[2024-08-27] MEDS: hydrOXYzine HCL 50 MG TAB PO (08:32)
[2024-08-27] MEDS: Docusate Sodium 100 MG CAP PO ×2 (08:32→20:32)
[2024-08-27] MEDS: Venlafaxine 75 MG TAB 37.5 MG PO (08:33)
[2024-08-27] MEDS: Acyclovir 400 MG TAB PO ×3 (08:33→20:32)
[2024-08-27] MEDS: Buprenorphine/Naloxone 8 mg/2 mg FILM 1 EACH SL ×3 (09:20→20:32)
--- NOTE | 2024-08-27 09:20 | PDOC.CMIN ---
Date of service: 08/27/24 Time of Service: 09:20 Care Management Initial Assmt Initial Assessment Reason for Hospitalization: facial cellulitis Functional Status/Living Situation Patient Presentation: Leif was seen in the ED on 08/23/24 due to lip swelling secondary to a cut while shaving. Also with a left upper eye lid stye. At that time, he was treated with oral abx and sent home. He returned on 08/26 with worsening symptoms and was admitted for IV abx. Leif was sitting up in the bed, having lunch, when CM met with him today. He was pleasant and polite. He stated that he is feeling a bit better and that the size of his lip has decreased considerably. He is concerned that the MRSA will go into his eye, where he has a sty. He was reminded to wash his hands often, and NOT to touch his eye, both eyes, for that matter. Leif is going to need senior living abx for his MRSA infection. [facility] is aware of this. 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 Town of Residence: [facility] Resides with: Other (currently housed in the [facility]) Significant Other/Family: Local (grandparents Ed and Eliana Gomez, sister Stiven Craft) Instrumental Activities of Daily Living (ADLs): Independent Medications Medication Management: No Issues/Barriers identified Advance Directives Advance Directives: Do you have an Advance Directive: N 08/23/24 15:[address] [facility]: N 11/29/23 10:39 Date Asked 08/23/24 08/23/24 15:11 AD Date Reviewed COLST On File at [facility] COLST Date Scanned Code Status Resuscitation Status Full Code Insurance Coverage/Financial Issues Insurance: Medicaid of [place] Care Team Visit Care Team Role Provider Type Kaylan Marcus NP MD [facility] STAFF PHYSICIAN Evelyn Suarez Primary Care Provider NON-[facility] STAFF PHYSICIAN CLARI Wall Emergency Provider [employer] Tung Muro MD Admit Provider [facility] STAFF PHYSICIAN Attending Provider Discharge Potential Discharge Needs: Other (f/u with facility provider) Anticipated Barriers to Discharge: None Identified Patient/Family Education Needs: Review discharge instructions, discuss Ask Me Three Transportation: Facility Transport Plan: Leif will require senior living antibiotics. He will transfer to a correctional facility in the [facility] that can accommodate his needs. This transfer will be coordinated by his current facility. Once medication dosing and length of treatment are determined, this will be communicated with the facility. Anticipate that discharge will occur tomorrow or next day. CM will continue to follow and to help coordinate this plan. Social Determinants of Health Screening Social Determinants of health last assessed in clinic: 08/27/24 Will the Patient Participate in the Screening?: Yes Do you worry about having a steady place to live?: no Problems where you live: no known problems In the past 12 months, have you had to go without electric, gas, oil or water in your home?: no 1. Within the past 12 months, we worried whether our food would run out before we got money to buy more.: Don't know/refused 2. Within the past 12 months, the food we bought just didn't last and we didn't have money to get more.: Don't know/refused Has lack of transportation kept you from medical appointments or from doing things needed for daily living?: no Has anyone in your life made you feel unsafe or unsupported?: no How hard is it for you to pay for the very basics like food, housing, medical care, and heating? Would you say it is:: Not hard at all Do you want help finding or keeping work or a job?: I do not need or want help If for any reason you need help with day-to-day activities such as bathing, preparing meals, shopping, managing finances, etc., do you get the help you need?: I don?t need any help How often do you feel lonely or isolated from those around you?: Rarely Do you speak a language other than [place] at home?: No Does the patient want assistance with any of the above?: No Health Related Social Needs Health related social needs: feeling lonely/isolated (Z60.8) Health related social needs details: Pt is currently incarcerated. PFSH All Active Problems (Updated 08/26/24 @ 13:40 by CLARI Wall) Facial cellulitis (Acute) Social History Smoking/Tobacco Use Status: Former Tobacco Use Smoking risk assessment performed?: Yes Alcohol Intake: former Substance use type: does not use Housing: other Do you feel safe at home: Yes Do you feel safe in your relationship?: Yes Readmission Within the Past 30 Days Yes or No: No
[2024-08-27] MEDS: Ketorolac 15 MG/ML VIAL IVP ×2 (09:58→23:03)
[2024-08-27] MEDS: Normal Saline Flush 10 ML SYR IVP (09:59)
[2024-08-27] MEDS: VANCOMYCIN 1,250 MG in Normal Saline 250 ML 166.667 MG IVPB ×2 (10:13→23:04)
[2024-08-27 11:44] VITALS: BP 123/73; PULSE 67; RESP 16; TEMP 36.5; O2SAT 93
--- NOTE | 2024-08-27 13:02 | PHACLINREV_ITS ---
Pharmacy Admission Review Admission Clinical Review Admission Pharmacy Review: Facial cellulitis (Acute) Penicillins Allergy (Severe, Verified 08/26/24 10:23) Anaphylaxis codeine Allergy (Intermediate, Verified 08/26/24 10:23) Hives Sulfa (Sulfonamide Antibiotics) Adverse Reaction (Intermediate, Verified 08/26/24 10:23) Swelling/Edema Resuscitation Status Full Code Height 5 ft 7 in Weight 93.894 kg Pharmacy Admission Review Renal Dosing Renal Dosing: BUN 13 mg/dL (7-18) 08/27/24 06:00 Creatinine 0.7 mg/dL (0.70-1.30) 08/27/24 06:00 Medications needing adjustments: Reviewed (CrCl 160.87 mL/min) List of meds needing interventions: Current medications are okay Anticoagulation Anticoagulation: Hgb 12.5 g/dL (13.5-17.5) L 08/27/24 06:00 Hct 35.7 % (40.0-50.0) L 08/27/24 06:00 Plt Count 10^3/uL (130-400) 08/27/24 06:00 Creatinine 0.7 mg/dL (0.70-1.30) 08/27/24 06:00 DVT Prophylaxis: Reviewed (SCDs, Hgb decreased from 12.6) Relevant Labs Relevant Labs: Sodium 139 mmol/L (136-145) 08/27/24 06:00 Potassium 3.8 mmol/L (3.5-5.1) 08/27/24 06:00 Chloride 104 mmol/L (98-107) 08/27/24 06:00 Magnesium 2.0 mg/dL (1.8-2.4) 08/27/24 06:00 C-Reactive Protein 3.31 mg/dL (<or=0.5) H 08/27/24 06:00 Electrolytes, C-Reactive P, ESR: Reviewed Cardiac Review BP, HR, EF%: Reviewed (BP and HR WNL) QTc Review QTc: Reviewed (No EKG on file) IV to PO Switch IV Medications: Reviewed (clindamycin, ketorolac and vancomycin) Home Meds Home Med List reviewed: Intervened Relevent Home Meds Not ordered & why?: *Called [facility] to verify home med list - made the following changes on home med list (provider aware) Changed acyclovir from DAILY to TID (given for herpes lesion, treating through 08/28/24 per nurse that I spoke with), changed order per provider request - no stop time on current order, mention to provider tomorrow Change prazosin from DAILY to HS (changed order - provider aware) Added TID acetaminophen, ibuprofen and erythromycin ointment Current Meds Current Medication Order Review: Intervened Comments: Nurse called this AM regarding Suboxone order. Patient takes 24mg (in tablet formulation) once daily. We only have the 2mg tablet so order was put in for the 8mg film. Per patient these make him nauseous and requested it to be given as 8mg TID. I reached out to provider who was okay with this change. Added IV admission order set Pharmacy Antibiotic Review Relevant Labs: Relevant Labs 08/27/24 06:00 C-Reactive Protein 3.31 H WBC 5.21 10^3/uL (4.4-10.8) 08/27/24 06:00 Temperature 36.5 C Temperature 36.9 C Microbiology 08/26/24 10:48 Wound Culture - Preliminary Lip - Right Upper Staph aureus, MRSA Gram Stain - Final Pharmacy Antibiotic Activity: C/S review and Reviewed, no change Comments: Patient is on vancomycin and clindamycin, day 1, for lower face cellulitis. Vancomycin dose changed to 1250mg q12h with predicted AUC of 514 and trough of 15.5, ordered another level for tomorrow with morning labs. Will adjust dose as needed. Blood cultures pending.
--- NOTE | 2024-08-27 15:38 | PGE_ITS ---
Date of Service Date of service: 08/27/24 Time of Service: 15:38 Assessment and Plan Assessment and plan (1) Facial cellulitis: Status: Acute Assessment and plan: Facial Cellulitis * Admit for inpatient management due to outpatient treatment failure * Antibiotics: * Vancomycin IV ? MRSA positive * discontinue Clindamycin IV ? * Monitor clinical response to IV antibiotics * Await blood cultures * Consider dental evaluation if symptoms persist or worsen due to underlying poor dentition 2. Pain Management Continue * Ketorolac 10 mg PO QID x 5 days for acute pain control * Acetaminophen 1000 mg PO q6h alternating with ketorolac * Warm compresses to right upper lip and left upper eyelid twice daily * Monitor for abscess formation or extension of infection * Continue current medications including Suboxone, venlafaxine, etc. * Hold ibuprofen until ketorolac course is completed * [facility]ibly [facility] to [facility]28 if BC neg and continues to improve Subjective Subjective Patient reports: no new complaints, tolerating liquids well, tolerating a regular diet and afebrile; denies diarrhea, nausea, vomiting or shortness of breath Interval history since last seen: Patient states he is feeling a little better today - his lip is still quite large but is draining; he has been applying warm compresses. Exam Narrative Exam Narrative: GENERAL APPEARANCE: Well-nourished, non-toxic, awake and alert, atraumatic, no acute distress. SKIN: Warm, pink, dry, intact, without rashes/lesions/ulcerations. HEAD: Normocephalic, atraumatic, normal hair distribution for gender/age. EYES: Normal conjunctiva, no exudates on lids/lashes, no pain with EOM movement, mild erythematous papular swelling to the left upper eyelid consistent with stye ENT: Nares patent, no circumoral cyanosis, severe erythema and swelling to the right upper lip with purulent drainage, mild maxillary tenderness NECK: Supple, trachea midline, painless cervical ROM. LUNGS/CHEST: Lungs CTA bilaterally-no rhonchi/rales/wheezes diffusely, non-l abored respirations, normal A/P diameter, symmetrical expansion, no chest wall deformity HEART (CV/PV): Regular rate and rhythm without murmur, no peripheral edema, no JVD. ABDOMEN: Soft, non-distended, no guarding. MSK: Normal ROM, no swelling/deformity to bilateral UEs or LEs, moving all extremities without weakness, no cyanosis, spine midline without tenderness, normal curvature. NEURO: Mental Status AAOx4 - alert to person, place, time, events No facial droop, no forehead involvement. Motor: No focal weakness - strength 5/5 in bilateral UEs and LEs, proximal and distal, symmetric. Sensory: sensation intact to light touch globally. Gait normal: patient ambulated without ataxia into ED room. PSYCH: euthymic, cooperative, pleasant, appropriate speech Objective Last Vital Signs Temp 36.5 C 08/27/24 11:44 Pulse 67 08/27/24 11:44 Resp 16 08/27/24 11:44 BP 123/73 08/27/24 11:44 Pulse Ox 93 08/27/24 11:44 Laboratory Results - last 24 hr 08/27/24 06:00 WBC 5.21 RBC 4.27 L Hgb 12.5 L Hct 35.7 L MCV 84 MCH 29.3 MCHC 35.0 RDW 12.6 Plt Count MPV 9.1 Immature Gran % 0.4 Neutrophils % 59.2 Lymphocytes % 25.9 Monocytes % 8.3 Eosinophils % 5.6 Basophils % 0.6 Nucleated RBC % 0.0 Absolute Neutrophils 3.09 Absolute Lymphocytes 1.35 Absolute Monocytes 0.43 Absolute Eosinophils 0.29 Absolute Basophils 0.03 Sodium 139 Potassium 3.8 Chloride 104 Carbon Dioxide 28.4 Anion Gap 6.6 BUN 13 Creatinine 0.7 Est GFR (CKD-EPI 2020) 123.23 Glucose 96 Calcium 9.4 Magnesium 2.0 C-Reactive Protein 3.31 H Random Vancomycin 18.3 Time Spent with Patient Time Spent with Patient: 25-34 minutes Time was spent: preparing to see the patient(eg.review tests), ordering medications,tests, procedures, referring, communicating with other health lawn care professional, indepentently interpreting results, counseling the patient and care coordination
[2024-08-27 16:02] VITALS: BP 134/53; PULSE 58; RESP 12; TEMP 36.7; O2SAT 99
[2024-08-27] MEDS: Prazosin 1 MG CAP PO (20:32)
[2024-08-28] VITALS: BP 107/71; PULSE 65; RESP 18; TEMP 36.5; O2SAT 95
[2024-08-28 07:02] LABS: Abs Immature Grans 0.03 10^3/uL (0.0-0.06); Absolute Basophil Count 0.03 10^3/uL (0.0-0.2); Absolute Lymphocyte Count 1.56 10^3/uL (1.2-3.4); Absolute Monocyte Count 0.45 10^3/uL (0.1-0.8); Absolute Neutrophil Count 2.13 10^3/uL (1.2-6.7); Basophils % 0.7 %; Eosinophils % 6.7 %; HCT 34.1 % (40.0-50.0); HGB 11.8 g/dL (13.5-17.5); Immature Grans % 0.7 %; Lymphocytes % 34.7 %; MCH 28.9 pg (27.0-33.0); MCHC 34.6 % (32.0-36.0); MCV 83 fL (80-95); MPV 8.6 fL (8.0-11.0); Neutrophils % 47.2 %; Platelet Count 200 10^3/uL (130-400); RBC 4.09 10^6/uL (4.36-5.78); RDW 12.3 % (11.8-14.1); RDW-SD 37.6 fL
[2024-08-28 07:21] LABS: Anion Gap 8.8 mmol/L (3-11); BUN 16 mg/dL (7-18); CO2 28.2 mmol/L (21.0-32.0); CREATININE 0.8 mg/dL (0.70-1.30); Calcium 9.2 mg/dL (8.5-10.1); Chloride 105 mmol/L (98-107); Estimated GFR 118.36 (mL/min/1.73m2); Glucose 97 mg/dL (74-106); Magnesium 1.9 mg/dL (1.8-2.4); Potassium 4.1 mmol/L (3.5-5.1); Sodium 142 mmol/L (136-145)
[2024-08-28 07:31] VITALS: BP 104/66; PULSE 52; RESP 16; TEMP 36.4; O2SAT 95
[2024-08-28] MEDS: Senna TAB 1 TAB PO (07:51)
[2024-08-28] MEDS: Acetaminophen 325 MG TAB PO (07:51)
[2024-08-28] MEDS: hydrOXYzine HCL 50 MG TAB PO (07:51)
[2024-08-28] MEDS: Ketorolac 15 MG/ML VIAL IVP (07:51)
[2024-08-28] MEDS: Venlafaxine 75 MG TAB 37.5 MG PO (07:51)
[2024-08-28] MEDS: Docusate Sodium 100 MG CAP PO (07:51)
[2024-08-28] MEDS: Normal Saline Flush 10 ML SYR IVP (07:52)
[2024-08-28] MEDS: Buprenorphine/Naloxone 8 mg/2 mg FILM 1 EACH SL (07:52)
[2024-08-28] MEDS: Acyclovir 400 MG TAB PO ×2 (07:52→12:51)
[2024-08-28 07:59] VITALS: PULSE 72
[2024-08-28 09:15] LABS: Lab Add On Test DONE
[2024-08-28 09:34] LABS: C-Reactive Protein 1.67 mg/dL (<or=0.5)
[2024-08-28] MEDS: VANCOMYCIN 1,250 MG in Normal Saline 250 ML 166.667 MG IVPB (09:52)
[2024-08-28 11:24] VITALS: BP 116/60; PULSE 66; RESP 16; TEMP 36.4; O2SAT 98
--- NOTE | 2024-08-28 11:58 | DSE_ITS ---
Date of service: 08/28/24 Time of Service: 11:58 DS: Diagnosis Discharge Diagnosis (1) Facial cellulitis: Status: Acute Discharge Plan Disposition [facility] Condition: Improving Discharge Details Reason For Visit: Lower face cellulitis Admit Date/Time: 08/26/24 14:38 Admit Provider: Tung Muro Attending Provider: Tung Muro Primary Care Provider: Evelyn Suarez Hospital Course Hospital Course: Leif Dyer was admitted with worsening right upper lip cellulitis, initially managed as an outpatient with oral clindamycin. On return to the ED, he had increased erythema, purulent drainage, and swelling, prompting admission for IV antibiotics due to outpatient treatment failure. No systemic symptoms (e.g., fever, leukocytosis) were noted. Imaging revealed diffuse cellulitis without abscess but significant surrounding tissue inflammation and poor dentition. He was started on IV vancomycin and continued IV clindamycin for MRSA and anaerobic coverage. Pain was managed with ketorolac and acetaminophen. Ophthalmic erythromycin ointment was added for a concurrent stye. A dental evaluation was considered due to suspected odontogenic contribution. He remained hemodynamically stable, afebrile, and improved clinically with IV antibiotics and supportive care. Wound culture MRSA positive. Blood cultures negative at 24 hours. Discharge Medications: * Linezolid 600 mg PO BID x 14 days ? for continued MRSA and Streptococcus coverage * Acyclovir 400 mg PO TID x 5 days ? for suspected viral co-infection * Acetaminophen 1000 mg PO q6h PRN and/or Ibuprofen 600 mg PO q6h PRN? for fever and pain * Warm compresses ? to right upper lip and left eyelid BID * Continue Suboxone, venlafaxine, hydroxyzine, prazosin, etc., as previously prescribed Discharge Instructions: * Apply warm compresses to affected areas twice daily * Monitor for signs of worsening infection: increasing swelling, fever, voice changes, neck stiffness, or difficulty swallowing * Complete full course of antibiotics * Follow up with primary care and consider dental evaluation for possible source control * Return to ED if condition worsens or does not improve within 72 hours Follow-up: * Primary care provider: Dr. Evelyn Suarez * Dental evaluation: As outpatient * Return to ED for any urgent symptoms Disposition: * Discharged to [facility] condition * Patient is a full code and agreed with plan of nursing home Meds and New Rx's Prescriptions: New acyclovir 400 mg Tablet 400 mg PO TID Qty: 0 0RF linezolid 600 mg tablet 600 mg PO Q12H 14 Days Qty: 28 0RF Continued docusate sodium 100 mg capsule 100 mg PO BID sennosides [Laxative (sennosides)] 8.6 mg tablet 8.6 mg PO DAILY hydroxyzine HCl 50 mg tablet 50 mg PO DAILY ibuprofen [Advil] 200 mg tablet 800 mg PO TID prazosin 1 mg capsule 1 mg PO HS buprenorphine-naloxone [Suboxone] 8-2 mg film 1 film sublingual TID Patient Comments: PLACE THREE FILMS UNDER THE TONGUE EVERY DAY FOR 7 DAYS venlafaxine 37.5 mg tablet 37.5 mg PO DAILY acetaminophen 500 mg capsule 1,000 mg PO TID acyclovir 400 mg tablet 400 mg PO TID Qty: 15 0RF Patient Comments: TAKING THROUGH 08/28/24 FOR HERPES LESION Discontinued clindamycin HCl 150 mg capsule 450 mg PO TID 14 Days Qty: 126 0RF erythromycin 5 mg/gram (0.5 %) ointment 1 applic ophthalmic (eye) TID Discharge Instructions Instructions: Acyclovir (Systemic), Linezolid Activity:: Activity as Tolerated Equipment/Supplies:: No Equipment Needed Diet:: As Tolerated DS: Summary Time Spent with Patient providing and/or coordinating discharge services: Greater than 30 minutes Status at Discharge Functional status at discharge: independent ambulation Overall status at discharge: patient is progressing back to baseline Mental Status: mental status grossly normal Speech and Movement: speech and movement normal Mood: congruent mood Affect: normal affect Quality:SDOH Health Related Social Needs: Health related social needs feeling lonely/isolated (Z 60.8) Health related social needs details Pt is currently in carcerated. Health related social needs details: Pt is currently incarcerated. Exam Narrative Exam Narrative: GENERAL APPEARANCE: Well-nourished, non-toxic, awake and alert, atraumatic, no acute distress. SKIN: Warm, pink, dry, intact HEAD: Normocephalic, atraumatic, normal hair distribution for gender/age. EYES: Normal conjunctiva, no exudates on lids/lashes, no pain with EOM movement, mild erythematous papular swelling to the left upper eyelid consistent with stye, has not gotten worse ENT: Nares patent, no circumoral cyanosis, moderate erythema and swelling to the right upper lip with purulent drainage, continues to have mild maxillary tenderness NECK: Supple, trachea midline, painless cervical ROM. LUNGS/CHEST: Lungs CTA bilaterally-no rhonchi/rales/wheezes diffusely, non- labored respirations, normal A/P diameter, symmetrical expansion, no chest wall deformity HEART (CV/PV): Regular rate and rhythm without murmur, no peripheral edema, no JVD. ABDOMEN: Soft, non-distended, no guarding. MSK: Normal ROM, no swelling/deformity to bilateral UEs or LEs, moving all extremities without weakness, no cyanosis, spine midline without tenderness, normal curvature. NEURO: Mental Status AAOx4 - alert to person, place, time, events No facial droop, no forehead involvement. Motor: No focal weakness - strength 5/5 in bilateral UEs and LEs, proximal and distal, symmetric. Sensory: sensation intact to light touch globally. Gait normal: patient ambulated without ataxia into ED room. PSYCH: euthymic, cooperative, pleasant, appropriate speech Psych Mental Status: mental status grossly normal Speech and Movement: speech and movement normal Mood: congruent mood Affect: normal affect DS: Data Vitals/I&O Vitals and I&O: Vital Signs Temperature 36.4 C L 08/28/24 11:24 Temperature Source Temporal Artery Scan 08/28/24 11:24 Pulse 66 08/28/24 11:24 Pulse Rhythm Regular 08/26/24 15:49 Respiratory Rate 16 08/28/24 11:24 Respiratory Effort Normal, Non-Labored 08/26/24 15:49 Respiratory Depth Normal 08/26/24 15:49 Respiratory Pattern Normal 08/26/24 15:49 Blood Pressure 116/60 08/28/24 11:24 Blood Pressure Mean 78 08/28/24 11:24 Blood Pressure Position Sitting 08/26/24 10:20 Pulse Oximetry 98 08/28/24 11:24 Oxygen Delivery Method Room Air 08/28/24 11:24 Oxygen Flow Rate 0 08/28/24 11:24 Pain Level 6 08/28/24 11:24 Comment RN notified 08/28/24 07:31 Intake & Output 08/27/24 08/27/24 08/28/24 11:59 23:59 11:59 Intake Total 880 / 1360 480 / 1360 750 / 750 Balance 880 / 1360 480 / 1360 750 / 750 Intake: IV 400 / 400 750 / 750 Oral 480 / 960 480 / 960 Other: Comment pt voiding independently in the room pt ind with voiding Data Completed and Pending Labs on day of discharge: Labs from last 24 hours 08/28/24 09:15: Add-On Test Request DONE 08/28/24 06:42: WBC 4.50, RBC 4.09 L, Hgb 11.8 L, Hct 34.1 L, MCV 83, MCH 28.9, MCHC 34.6, RDW 12.3, Plt Count 200, MPV 8.6, Immature Gran % 0.7, Neutrophils % 47.2, Lymphocytes % 34.7, Monocytes % 10.0, Eosinophils % 6.7, Basophils % 0.7, Nucleated RBC % 0.0, Absolute Neutrophils 2.13, Absolute Lymphocytes 1.56, Absolute Monocytes 0.45, Absolute Eosinophils 0.30, Absolute Basophils 0.03, Sodium 142, Potassium 4.1, Chloride 105, Carbon Dioxide 28.2, Anion Gap 8.8, BUN 16, Creatinine 0.8, Est GFR (CKD-EPI 2020) 118.36, Glucose 97, Calcium 9.2, Magnesium 1.9, C-Reactive Protein 1.67 H, Random Vancomycin 16.0 Preliminary micro results at discharge 08/26/24 10:48 Lip - Right Upper Wound Culture - Preliminary Staph aureus, MRSA 08/26/24 11:25 Blood Blood Culture - Preliminary NO GROWTH 24 HOURS 08/26/24 11:04 Blood Blood Culture - Preliminary NO GROWTH 24 HOURS PFSH All Active Problems (Updated 08/26/24 @ 13:40 by CLARI Wall) Facial cellulitis (Acute) Social History Smoking/Tobacco Use Status: Former Tobacco Use Smoking risk assessment performed?: Yes Alcohol Intake: former Substance use type: does not use Housing: other Do you feel safe at home: Yes Do you feel safe in your relationship?: Yes Time Spent with Patient Time Spent with Patient: 45-69 minutes Time was spent: preparing to see the patient(eg.review tests), ordering medications,tests, procedures, referring, communicating with other health care p jeanneionals, indepentently interpreting results, counseling the patient and care coordination
--- NOTE | 2024-08-28 12:05 | CMDISCH_ITS ---
Date of service: 08/28/24 Time of Service: 12:05 LACE Index Scoring Tool Questions: Length of Stay (in days): 2 Was the patient admitted via the E.D.?: Yes E.D. Visits: 1 Answers: Total Score: 6 Risk of Readmission: Low Risk Care Management Discharge Plan Reason for Hospitalization: facial cellulitis Discharge Plan: Leif will be discharged back to the correctional facility later today. He will be on oral antibiotics. He will f/u with the facility provider, continue per his plan of care, and be transported by the corrections facility Patient/Family Education Needs: Review of discharge instructions, activity, limitations, and discuss Ask me 3. SDOH Health Related Social Needs: Health related social needs feeling lonely/isolated (Z 60.8) Health related social needs details Pt is currently in carcerated. Health related social needs details: Pt is currently incarcerated.
[2024-08-28] MEDS: Buprenorphine/Naloxone 8 mg/2 mg FILM 2 EACH SL (12:51)
== END 2024-08-28 13:11 | DRG 603 ==
LOC: ER 13:40 → MS 15:45
PROVIDERS: Admitting Provider Hospitalist; Emergency Provider Physician Assistant; PCP Nurse Practitioner Family; Responsible Provider Nurse Practitioner Family; Visit Provider Hospitalist
DX: L03.211 Cellulitis of face (principal); B95.62 Methicillin resistant Staphylococcus aureus infection as the cause of diseases classified elsewhere; K08.89 Other specified disorders of teeth and supporting structures; Z79.899 Other long term (current) drug therapy; Z60.8 Other problems related to social environment; Z87.891 Personal history of nicotine dependence
CPT/HCPCS: 00123; 36415; 80048; 80053; 87040; 87077; 96365; 96366; 99285; 70487; 80202; 83605; 83735; 85025; 86140; 87070; 87186; 87205; 99222; 99232; 99239; J0737; J1885; J3370; J3372; J3490

== ENCOUNTER 2024-11-27 10:18 | Emergency (ER) | payer OTHER, SELFPAY ==
[2024-11-27 10:19] VITALS: BP 108/64; PULSE 86; RESP 15; TEMP 36.8; O2SAT 95
[2024-11-27 10:22] VITALS: BP 108/64; PULSE 86; RESP 15; TEMP 36.8; O2SAT 95
[2024-11-27] MEDS: Doxycycline Hyclate 100 MG CAP PO (10:48)
[2024-11-27] MEDS: Ibuprofen 600 MG TAB PO (10:48)
[2024-11-27] MEDS: Acetaminophen 500 MG TAB 1000 MG PO (10:48)
[2024-11-27] MEDS: Clindamycin 150 MG CAP 450 MG PO (10:48)
--- NOTE | 2024-11-27 10:52 | ED.GENADUL_ITS ---
Discharge Plan Disposition Patient [facility] Condition: Good Discharge Details Clinical Impression: Facial cellulitis Primary Care Provider: Evelyn Suarez ED Provider: Gopal Mar Home Meds and New Rx's Prescriptions: New doxycycline monohydrate 100 mg capsule 100 mg PO BID Qty: 14 0RF Rx Instructions: Start dosing on the evening of 11/27/24 clindamycin HCl [Cleocin HCl] 150 mg capsule 300 mg PO Q6H 7 Days Qty: 56 0RF Rx Instructions: Begin dosing at 17:00 on 11/27/24 Continued docusate sodium 100 mg capsule 100 mg PO BID sennosides [Laxative (sennosides)] 8.6 mg tablet 8.6 mg PO DAILY hydroxyzine HCl 50 mg tablet 50 mg PO DAILY prazosin 1 mg capsule 1 mg PO HS buprenorphine-naloxone [Suboxone] 8-2 mg film 3 film sublingual DAILY venlafaxine 37.5 mg tablet 37.5 mg PO DAILY acetaminophen 500 mg capsule 1,000 mg PO TID chlorhexidine gluconate [Periogard] 0.12 % mouthwash 15 ml mucous membrane BID Rx Instructions: Take for 5 days- started 11/26/24 melatonin 3 mg capsule 3 mg PO QHS omeprazole 20 mg capsule,delayed release(DR/EC) 20 mg PO DAILY calcium carbonate 400 mg calcium (1,000 mg) tablet,chewable 1,000 mg PO BID PRN Discharge Instructions Instructions: Cellulitis (Skin Infection), Adult ED, Preseptal Cellulitis ED Additional Instructions: Please begin your antibiotics upon arrival back to the correctional facility. For correctional facility health care provider: Patient will be starting doxycycline 100 mg twice daily x 7 days, with first dose starting this evening. Patient will also be starting clindamycin 300 mg every 6 hours x 7 days with first dose starting at 1700 this evening. Discharge Data Discharge Physician: Gopal Mar [facility] General Date/Time Provider Initiated Documentation: 11/27/24 10:26 . HPI Narrative: 34-year-old male with past history of MRSA, presents for evaluation of painful swelling of the face, x 3 days. Patient states he noted a pimple below his right eye on his right cheek several days ago, noted that yesterday became more swollen and painful and concerned that the MRSA infection is spread. He denies any associated visual changes, fever, chills, nausea, vomiting, or pain with movement of his eyes. He does note a history of allergies to penicillins as well as sulfa antibiotics. Related Data Home Medications ?Medication ?Instructions ?Recorded ?Confirmed buprenorphine 8 mg-naloxone 2 mg 3 film sublingual BELINDA LY 08/23/24 11/27/24 sublingual film (Suboxone) docusate sodium 100 mg capsule 100 mg PO BID 08/23/24 11/27/24 hydroxyzine HCl 50 mg tablet 50 mg PO DAILY 08/23/24 0 11/27/24 prazosin 1 mg capsule 1 mg PO HS 08/23/24 11/27/24 sennosides 8.6 mg tablet (Laxative 8.6 mg PO DAILY 06/1811/27/24 (sennosides)) venlafaxine 37.5 mg tablet 37.5 mg PO DAILY 08/23/24 0 11/27/24 acetaminophen 500 mg capsule 1,000 mg PO TID 08/26/24 11/27/24 calcium carbonate 1,000 mg PO BID PRN 11/27/24 11/27/24 chlorhexidine gluconate 0.12 % 15 ml mucous membrane B ID 11/27/24 11/27/24 mouthwash (Periogard) clindamycin HCl 150 mg capsule 300 mg (2 x 150 mg) PO Q6H 7 days 11/27/24 (Cleocin HCl) #56 caps doxycycline monohydrate 100 mg 100 mg PO BID Celluliti s #14 caps 11/27/24 capsule melatonin 3 mg capsule 3 mg PO QHS 11/27/24 5 omeprazole 20 mg capsule,delayed 20 mg PO DAILY 11/27/24 release Previous Rx's ?Medication ?Instructions ?Recorded clindamycin HCl 150 mg capsule 300 mg (2 x 150 mg) PO Q6H 7 days 11/27/24 (Cleocin HCl) #56 caps doxycycline monohydrate 100 mg 100 mg PO BID Celluliti s #14 caps 11/27/24 capsule Allergies Allergy/AdvReac Type Severity Reaction Status Date / Time Penicillins Allergy Severe Anaphylaxis Verified 11/27/24 10:23 codeine Allergy Intermediate Hives Verified 11/27/24 10:23 Sulfa (Sulfonamide AdvReac Intermediate Swelling/Ed Verified 11/27/24 10:23 Antibiotics) garima General Stated Complaint: Cellulitis INDIGO: 3 Review of Systems All systems reviewed & are unremarkable except as noted in HPI and below Exam Narrative Exam Narrative: Gen: A&O NAD HEENT: NCAT, EOMI, not icteric. External ears normal. No rhinorrhea. Moist mucous membranes. There is a 2 inch x 3 inch area of induration and erythema ov er the right zygomatic process, which is mildly tender to palpation without associated fluctuance. There is a central pustule. Neck: Supple, full range of motion, no observable masses, No meningeal sign. Lungs: No Respiratory distress. CV: RRR, no edema. Abdomen: Soft, nondistended, No rebound tenderness. MSK: No joint swelling, no redness. Skin: No rashes, petechiae, lesions. Normal color per patient. Neuro: Normal Gait, Grossly intact. Psych: Appropriate for situation. Course Vital Signs Vital signs: Vital Signs Temperature 36.8 C 11/27/24 10:19 Pulse 86 11/27/24 10:19 Respiratory Rate 15 11/27/24 10:19 Blood Pressure 108/64 11/27/24 10:19 Pulse Oximetry 95 11/27/24 10:19 Temperature 36.8 C 11/27/24 10:22 Temperature Source Oral 11/27/24 10:22 Pulse 86 11/27/24 10:22 Respiratory Rate 15 11/27/24 10:22 Blood Pressure 108/64 11/27/24 10:22 Blood Pressure Position Sitting 11/27/24 10:22 Pulse Oximetry 95 11/27/24 10:22 Oxygen Delivery Method Room Air 11/27/24 10:22 Oxygen Flow Rate 0 11/27/24 10:22 Pain Level 6 11/27/24 10:22 Medical Decision Making 34-year-old male with a past med history of MRSA infection presents for facial cellulitis. Vital signs are within normal limits, no concerning findings on exam to suggest facial abscess, or postseptal cellulitis. Given patient's multiple drug allergies, will double cover with doxycycline and clindamycin. Case was discussed with the corrections informatory who confirmed that they do have doxycycline and clindamycin on formulary and will be able to provide patient upon his arrival. Patient was given his first dose of the medication as well as Tylenol ibuprofen while in the emergency department. He was instructed to return should he develop worsening symptoms to include fever, chills, rash, visual changes, persistent headache, or any other new or concerning symptoms. Quality:SDOH Health Related Social Needs: Health related social needs lonely/isolated Health related social needs details Pt is currently in carcerated. PFSH All Active Problems (Updated 11/27/24 @ 10:41 by Gopal Mar MD) Facial cellulitis (Acute) Social History Smoking/Tobacco Use Status: Former Tobacco Use Smoking risk assessment performed?: Yes Alcohol Intake: former Substance use type: does not use Housing: other Do you feel safe at home: Yes Do you feel safe in your relationship?: Yes
== END 2024-11-27 11:00 ==
PROVIDERS: Emergency Provider General Practice; PCP Nurse Practitioner Family
DX: L03.211 Cellulitis of face (principal); Z60.8 Other problems related to social environment
CPT/HCPCS: 99283; 99285